=== PATIENT | female | born 1995 | race Caucasian/White ===

== ENCOUNTER 2017-03-10 22:26 | Emergency (ER) | payer OTHER ==
[2017-03-10] MEDS ORDERED: TYLENOL ONE (22:40)
[2017-03-10] MEDS ORDERED: TYLENOL PO ONE (22:40)
--- NOTE | 2017-03-11 04:36 | Emergency Department Report ---
- General Chief complaint: Skin/Abscess/Foreign Body Stated complaint: FEVER/NOLAN/PIMPLE Time Seen by Provider: 03/11/17 04:14 Source: patient, family Mode of arrival: Ambulatory Limitations: No Limitations - History of Present Illness Initial comments: Patient here with family member who reports that she has a boil to her coccyx area. Patient said this is the first time this is ever happened to her she complain of headache and fever and chills. Denies any nausea or vomiting. She said it started 4 days ago and is getting bigger has redness and there is some drainage coming from site. This vaccine is not up-to-date. Worse with sitting down and to touch and better with rest. She took [id number] pain medication but it didn't help. Pain is 10 out of 10 and throbbing. Denies any shortness of breath, wheezing, cough or swelling of tongue or neck. MD complaint: abscess/boil Onset/Timin -: days(s) Tetanus Up to Date: no Location: buttocks Severity: severe Severity scale (0 -10): 10 Quality: constant, other (throbbing) Consistency: constant Improves with: rest Worsens with: palpation, movement Context: other (unknown) Associated symptoms: fever, chills - Related Data Previous Rx's Medication Instructions Recorded Last Taken Type HYDROcodone/APAP 7.5-325 [[place] 1 each PO Q6HR PRN #12 tablet 03/11/17 Unknown Rx 7.5/325] Ibuprofen [Motrin] 800 mg PO Q8HR PRN #15 tablet 03/11/17 Unknown Rx Sulfamethoxazole/Trimethoprim 1 each PO BID #20 tablet 03/11/17 Unknown Rx [Bactrim DS TAB] Allergies Allergy/AdvReac Type Severity Reaction Status Date / Time Penicillins Allergy Rash Verified 03/10/17 22:35 Abscess Boil HPI - HPI Chief Complaint: Skin/Abscess/Foreign Body Stated Complaint: FEVER/NOLAN/PIMPLE Time Seen by Provider: 03/11/17 04:14 Home Medications: Previous Rx's Medication Instructions Recorded Last Taken Type HYDROcodone/APAP 7.5-325 [[place] 1 each PO Q6HR PRN #12 tablet 03/11/17 Unknown Rx 7.5/325] Ibuprofen [Motrin] 800 mg PO Q8HR PRN #15 tablet 03/11/17 Unknown Rx Sulfamethoxazole/Trimethoprim 1 each PO BID #20 tablet 03/11/17 Unknown Rx [Bactrim DS TAB] Allergies/Adverse Reactions: Allergies Allergy/AdvReac Type Severity Reaction Status Date / Time Penicillins Allergy Rash Verified 03/10/17 22:35 ED Review of Systems ROS: Stated complaint: FEVER/NOLAN/PIMPLE Other details as noted in HPI Comment: All other systems reviewed and negative Constitutional: denies: chills, fever ENT: denies: throat pain, congestion Respiratory: no symptoms reported Cardiovascular: denies: chest pain, palpitations, dyspnea on exertion, orthopnea , edema Gastrointestinal: denies: abdominal pain, nausea, vomiting Musculoskeletal: denies: back pain, joint swelling, arthralgia, myalgia Skin: other (abscess, redness to coccyx) Neurological: denies: headache, weakness, numbness, paresthesias, confusion, abnormal gait ED Past Medical Hx - Past Medical History Previous Medical History?: No - Surgical History Past Surgical History?: No - Family History Family history: no significant - Social History Smoking Status: Former Smoker Substance Use Type: Alcohol, Marijuana Other Social History: Lives with family - Medications Home Medications: Home Medications Medication Instructions Recorded Confirmed Last Taken Type HYDROcodone/APAP 7.5-325 [[place] 1 each PO Q6HR PRN #12 tablet 03/11/17 Unknown Rx 7.5/325] Ibuprofen [Motrin] 800 mg PO Q8HR PRN #15 tablet 03/11/17 Unknown Rx Sulfamethoxazole/Trimethoprim 1 each PO BID #20 tablet 03/11/17 Unknown Rx [Bactrim DS TAB] ED Physical Exam - General Limitations: No Limitations General appearance: alert, in no apparent distress - Head Head exam: Present: atraumatic, normocephalic, normal inspection - Eye Eye exam: Present: normal appearance, PERRL, EOMI. Absent: nystagmus, periorbital swelling, periorbital tenderness Pupils: Present: normal accommodation - ENT ENT exam: Present: normal exam, normal orophraynx, mucous membranes moist, TM's normal bilaterally, normal external ear exam - Neck Neck exam: Present: normal inspection, full ROM. Absent: tenderness, meningismus, lymphadenopathy - Respiratory Respiratory exam: Present: normal lung sounds bilaterally. Absent: respiratory distress, wheezes, rales, rhonchi, stridor, chest wall tenderness, accessory muscle use - Cardiovascular Cardiovascular Exam: Present: normal rhythm, tachycardia - GI/Abdominal GI/Abdominal exam: Present: soft, normal bowel sounds. Absent: distended, tenderness, guarding, rebound, rigid - Extremities Exam Extremities exam: Present: normal inspection, full ROM, normal capillary refill. Absent: tenderness, pedal edema, joint swelling, calf tenderness - Back Exam Back exam: Present: normal inspection, full ROM. Absent: tenderness, CVA tenderness (R), CVA tenderness (L), muscle spasm, paraspinal tenderness, vertebral tenderness, rash noted - Neurological Exam Neurological exam: Present: alert, oriented X3, normal gait, reflexes normal. Absent: motor sensory deficit - Psychiatric Psychiatric exam: Present: normal affect, normal mood - Skin Skin exam: Present: warm, dry, erythema, other (Abscess coccyx) - Expanded Skin Exam Expanded Type of lesion: Present: abscess Distribution of rash: other (coccyx) Description of rash: Present: size (3x4 cm), tenderness, erythematous, swelling , discharge, fluctuant, indurated ED Course Vital Signs 03/10/17 03/11/17 22:36 05:04 Temperature 100.6 F H 99.1 F Pulse Rate 116 H 84 Respiratory 18 17 Rate Blood Pressure 135/81 Blood Pressure 130/84 [Right] O2 Sat by Pulse 98 99 Oximetry - Reevaluation(s) Reevaluation #1: 03/11/17 06:29 See procedure note an incision and drainage of abscess. She'll given Boostrix 0.5 Ml emergency room and Percocet 5/325 2 tablets. - I & D Back Type of Procedure: Complex Site: coccyx,LT Blade Size: 11 I & D Procedure: betadine prep, sterile drapes applied, sterile dressing applied , gauze wick placed Progress: Patient with pilonidal abscess to left coccyx area. incision and drained after instillation 5 mL of 0.5% Marcaine. Prior to Marcaine injection area cleansed with iodine and saline. 0.25 cm linear laceration made and very large copious amount of Mal-. malodorous serosang drainage from site. Area packed with 1% iodoform pack in and 4 x 4 sterile dressing placed inside. tolerated procedure well. She was given tetanus vaccine. ED Medical Decision Making - Medical Decision Making MDM: Assessment/plan ED course:Pt here reports that she has abscess, redness and drainage to her coccyx area dressing gone on for 4 days. She says she's never had any problems like this in the past. She said is very painful and draining some pus and it hurts when she sits on her bottom. He reports that she was having fever and patient went elevated temp and triage. She was given fever chrome polisher which brought her fever down. She was also given Percocet for pain which helped her pain. Incision and drainage of pilonidal abscess done and patient tolerated procedure well. See procedure note for detail. Tetanus vaccine given in emergency room. He should and family voiced nondistended discharge diagnosis and treatment plan. There were told to return to the emergency room in 4 days for removal of packing. Diagnostics / laboratory: No Need for diagnostics her lab tests. Diagnosis: Pilonidal abscess, Cellulitus buttocks, Encounter for incision and drainage . MEDS: Patient was given Tylenol 975 mg in triage area for fever and pain. She was then given Percocet 5/325 mg 2 tablets in emergency room prior to procedure. Patient given Boostrix 0.5 [place] for tetanus update. They shouldn' t discharge home and prescription for [place], Motrin and Bactrim DS . Patient to return to the emergency room in 4 days for removal of packing She was given instruction to not remove packing and to apply warm compresses to affected area 3-4 times a day Critical care attestation.: If time is entered above; I have spent that time in minutes in the direct care of this critically ill patient, excluding procedure time. ED Disposition Clinical Impression: Pilonidal abscess, Cellulitis and abscess of buttock, Encounter for incision and drainage procedure Disposition: TO HOME OR SELFCARE Is pt being admited?: No Does the pt Need Aspirin: No Condition: Stable Instructions: Abscess Incision and Drainage (ED), Cellulitis (ED) Additional Instructions: do not remove packing in Warm compresses to affected site 3-4 times a day Take antibiotic as prescribed good hand hygiene Do not drive or operate heavy machinery while taking [place] as these medication could cause drowsiness return to the emergency room in 4 days for removal of packing Prescriptions: HYDROcodone/APAP 7.5-325 [[place] 7.5/325] 1 each PO Q6HR PRN #12 tablet PRN Reason: Pain Ibuprofen [Motrin] 800 mg PO Q8HR PRN #15 tablet PRN Reason: Pain Sulfamethoxazole/Trimethoprim [Bactrim DS TAB] 1 each PO BID #20 tablet Referrals: PRIMARY CARE, [Primary Care Provider] - 03/12/17 return to, emergency room [Other] - 03/15/17 Forms: Work/School Release Form(ED), Accompanied Note
[2017-03-11] MEDS ORDERED: MOTRIN PO ONE (04:37)
[2017-03-11] MEDS ORDERED: MARCAINE 0.5% INFILTRATI ONE (04:37)
[2017-03-11] MEDS ORDERED: PERCOCET 5/325 PO ONE (04:37)
[2017-03-11] MEDS ORDERED: BOOSTRIX IM ONE (04:44)
[2017-03-11 05:05] VITALS: BP 130/84
== END 2017-03-11 07:03 | disposition home or self-care (01) ==
LOC: ED 22:26
DX: L05.01 Pilonidal cyst with abscess (principal); Z88.0 Allergy status to penicillin
CPT/HCPCS: 90471; 90715

== ENCOUNTER 2017-03-15 09:40 | Emergency (ER) | payer OTHER ==
[2017-03-15 09:48] VITALS: BP 126/67
--- NOTE | 2017-03-15 11:30 | Emergency Department Report ---
ED Recheck HPI - General Chief Complaint: Laceration/Recheck/Suture Stated Complaint: FOLLOW UP Time Seen by Provider: 03/15/17 11:29 Source: patient, family Mode of arrival: Ambulatory Limitations: No Limitations - History of Present Illness Initial Comments: Patient here for wound recheck. She was seen here 5 days ago for incision and drainage of pilonidal abscess. Patient was so far hydrocodone and Motrin.She says she is feeling much better and she is having pain 3/10 only with sitting .Pain feels sore. Draining and has decreased.She said wound was draining alot. Denies any fever or chills. No nausea or vomiting. MD Complaint: wound re-check Onset/Timin -: days(s) Initial Visit For: abscess Returns Today for: wound recheck, cellulitis follow-up Symptoms Since Prior Visit: improved Context: planned re-check Associated Symptoms: none Treatments Prior to Arrival: Given Antibiotics on, Given Pain Meds on - Related Data Previous Rx's Medication Instructions Recorded Last Taken Type HYDROcodone/APAP 7.5-325 [[place] 1 each PO Q6HR PRN #12 tablet 03/11/17 Unknown Rx 7.5/325] Ibuprofen [Motrin] 800 mg PO Q8HR PRN #15 tablet 03/11/17 Unknown Rx Sulfamethoxazole/Trimethoprim 1 each PO BID #20 tablet 03/11/17 Unknown Rx [Bactrim DS TAB] Allergies Allergy/AdvReac Type Severity Reaction Status Date / Time Penicillins Allergy Rash Verified 03/10/17 22:35 ED Review of Systems ROS: Stated complaint: FOLLOW UP Other details as noted in HPI Comment: All other systems reviewed and negative Constitutional: denies: chills, fever Respiratory: no symptoms reported Cardiovascular: denies: chest pain, palpitations, edema, syncope Gastrointestinal: denies: abdominal pain, nausea, vomiting, diarrhea Skin: other (abscess/cellulitis better) Neurological: denies: headache ED Past Medical Hx - Past Medical History Previous Medical History?: Yes Additional medical history: abscess - Surgical History Past Surgical History?: No - Family History Family history: no significant - Social History Smoking Status: Current Some Day Smoker Substance Use Type: Alcohol, Marijuana, Prescribed - Medications Home Medications: Home Medications Medication Instructions Recorded Confirmed Last Taken Type HYDROcodone/APAP 7.5-325 [[place] 1 each PO Q6HR PRN #12 tablet 03/11/17 Unknown Rx 7.5/325] Ibuprofen [Motrin] 800 mg PO Q8HR PRN #15 tablet 03/11/17 Unknown Rx Sulfamethoxazole/Trimethoprim 1 each PO BID #20 tablet 03/11/17 Unknown Rx [Bactrim DS TAB] ED Physical Exam - General Limitations: No Limitations General appearance: alert, in no apparent distress - Head Head exam: Present: atraumatic, normocephalic, normal inspection - Neck Neck exam: Present: normal inspection, full ROM. Absent: tenderness, lymphadenopathy - Respiratory Respiratory exam: Present: normal lung sounds bilaterally. Absent: respiratory distress, chest wall tenderness - Cardiovascular Cardiovascular Exam: Present: regular rate, normal rhythm, normal heart sounds - GI/Abdominal GI/Abdominal exam: Present: soft, normal bowel sounds. Absent: distended, tenderness, guarding, rebound, rigid - Extremities Exam Extremities exam: Present: normal inspection, full ROM, normal capillary refill. Absent: tenderness, pedal edema, joint swelling, calf tenderness - Back Exam Back exam: Present: normal inspection, full ROM - Neurological Exam Neurological exam: Present: alert, oriented X3, normal gait, reflexes normal. Absent: motor sensory deficit - Psychiatric Psychiatric exam: Present: normal affect, normal mood - Skin Skin exam: Present: other (wound to with buttocks with packing. no cellulitis. mild tenderness to palpate.) ED Course Vital Signs 03/15/17 09:44 Temperature 98.2 F Pulse Rate 82 Respiratory 20 Rate Blood Pressure 126/67 O2 Sat by Pulse 97 Oximetry - Reevaluation(s) Reevaluation #1: 03/15/17 11:57 stable throughout ed course ED Recheck [facility] - Medical Decision Making [facility] ED course: Patient here for packing removal. SHe had abscess with incision and drainage on 03/11/2017. She also had cellulitis to buttocks and was placed on pain medication and Bactrim DS. Patient is better and drainage has subsided. No signs of cellulites packing remove from buttocks area and area cleansed with iodine and normal saline and dry sterile dressing placed the site. Patient instructed to continue to take her Bactrim DS. He struck the patient that she will need to follow up with surgeon for referral for possible surgery of pilonidal cysts. She voiced understanding and and discharged home in stable condition to follow up with her primary care physician in 2-3 days. Critical care attestation.: If time is entered above; I have spent that time in minutes in the direct care of this critically ill patient, excluding procedure time. ED Disposition Clinical Impression: Change or removal of wound packing Disposition: DC-01 TO HOME OR SELFCARE Is pt being admited?: No Does the pt Need Aspirin: No Condition: Stable Instructions: Acute Wound Care (ED) Additional Instructions: Continue to take Bactrim DS Follow-up with your primary care physician in 2-3 days See referral to surgery Referrals: PRIMARY CARE, [Primary Care Provider] - 2-3 Days ORIANA ANTUNEZ MD [Staff Physician] - 2-3 Days Forms: Work/School Release Form(ED)
== END 2017-03-15 12:09 | disposition home or self-care (01) ==
LOC: ED 09:40
DX: L05.01 Pilonidal cyst with abscess (principal); F17.210 Nicotine dependence, cigarettes, uncomplicated; F12.10 Cannabis abuse, uncomplicated; Z88.0 Allergy status to penicillin
CPT/HCPCS: 99282